=== PATIENT | female | born 1950 | race Hispanic/Latino ===

== ENCOUNTER 2023-02-04 13:36 | Emergency (ER) | payer MEDICARE ==
[~2023-02-04] VITALS: Ht 162.6 cm; Wt 88.6 kg
[2023-02-04] VITALS (14 sets, daily range): BP systolic 172–208; BP diastolic 62–97
[2023-02-04 14:40] LABS: BASO% 0.2 % (0-3); EOS% 0.3 % (0-8); HEMOGLOBIN 11.7 g/dl (12.0-16.0); IMMATURE GRANULOCYTES 0.2 % (0.0-5.0); LYMPH% 16.7 % (15-41); MEAN CELL VOLUME 85.4 fL CALC (80.0-100.0); MEAN CORPUSCULAR HGB 28.5 pG CALC (26.0-32.0); MEAN CORPUSCULAR HGB CONC 33.4 g/dL CAL (32.0-36.0); NEUT# 9.96 thou/uL (2.00-7.15); NEUT% 76.6 % (42-76); RED BLOOD COUNT 4.1 mill/uL (4.20-5.60); RED CELL DISTRI WIDTH 12.9 % (11.5-15.5)
[2023-02-04 14:44] LABS: ALBUMIN 3.8 g/dL (3.2-5.0); CREATININE 1.4 mg/dL (0.5-1.0); POTASSIUM 3.8 mmol/l (3.5-5.1); TOTAL PROTEIN 6.8 g/dL (6.3-8.2)
[2023-02-04 14:45] LABS: BILIRUBIN, TOTAL 0.7 mg/dL (0.02-1.3)
[2023-02-04 15:21] LABS: URINE BILIRUBIN - DIPSTICK NEGATIVE (NEGATIVE); URINE BLOOD DIPSTICK SMALL (NEGATIVE); URINE COLOR YELLOW; URINE GLUCOSE - DIPSTICK >=1000 mg/dL (NEGATIVE); URINE KETONE NEGATIVE (NEGATIVE); URINE LEUK ESTERASE NEGATIVE (NEGATIVE); URINE PROTEIN - DIPSTICK 100 mg/dL (NEG-TRACE); URINE SPECIFIC GRAVITY 1.015
[2023-02-04 15:24] LABS: URINE NITRITE - DIPSTICK NEGATIVE (Negative)
[2023-02-04 15:35] LABS: URINE SQUAMOUS EPITHELIAL CELL FEW EPI/hpf (0-FEW); URINE WBC 20-50 WBC/hpf (0-5)
[2023-02-04] MEDS ORDERED: CEFDINIR300 MG PO (16:43)
== END 2023-02-04 18:42 | disposition home or self-care (01) ==
LOC: ED 13:36
PROVIDERS: Family Medicine
DX: N39.0 Urinary tract infection, site not specified (principal); B96.89 Other specified bacterial agents as the cause of diseases classified elsewhere; I10 Essential (primary) hypertension; E11.9 Type 2 diabetes mellitus without complications
CPT/HCPCS: Q9967

== ENCOUNTER 2023-02-14 13:50 | Emergency (ER) | payer MEDICARE ==
[2023-02-14] VITALS (14 sets, daily range): BP systolic 164–227; BP diastolic 65–94
[~2023-02-14] VITALS: Ht 162.6 cm; Wt 90.0 kg
[~2023-02-14 13:50] MED LIST: CEFDINIR300 MG PO
[2023-02-14] MEDS ORDERED: JARDIANCE25 MG (14:15)
[2023-02-14] MEDS ORDERED: ATORVASTATIN CA20 MG PO (14:15)
[2023-02-14] MEDS ORDERED: JANUVIA100 MG PO (14:16)
[2023-02-14] MEDS ORDERED: LOSARTAN POTAS100 MG PO (14:17)
[2023-02-14] MEDS ORDERED: ASPIRIN81 MG PO (14:17)
[2023-02-14] MEDS ORDERED: METFORMIN HCL1000 MG PO (14:18)
[2023-02-14 14:30] LABS: URINE BILIRUBIN - DIPSTICK NEGATIVE (NEGATIVE); URINE BLOOD DIPSTICK TRACE-INTACT (NEGATIVE); URINE COLOR YELLOW; URINE GLUCOSE - DIPSTICK >=1000 mg/dL (NEGATIVE); URINE KETONE NEGATIVE (NEGATIVE); URINE LEUK ESTERASE NEGATIVE (NEGATIVE); URINE PH 5.5 (4.5-8.0); URINE PROTEIN - DIPSTICK 100 mg/dL (NEG-TRACE); URINE UROBILINOGEN - DIPSTICK 0.2 E.U./dL (0.2)
[2023-02-14 14:31] LABS: URINE NITRITE - DIPSTICK NEGATIVE (Negative)
[2023-02-14 14:31] LABS: BASO% 0.6 % (0-3); HEMATOCRIT 36.7 % (37.0-47.0); HEMOGLOBIN 11.9 g/dl (12.0-16.0); IMMATURE GRANULOCYTES 0.6 % (0.0-5.0); LYMPH% 33.5 % (15-41); MEAN CELL VOLUME 86.4 fL CALC (80.0-100.0); MEAN CORPUSCULAR HGB CONC 32.4 g/dL CAL (32.0-36.0); MONO% 3.9 % (2-13); NEUT# 4.97 thou/uL (2.00-7.15); NEUT% 59.4 % (42-76); RED BLOOD COUNT 4.25 mill/uL (4.20-5.60); RED CELL DISTRI WIDTH 13.2 % (11.5-15.5)
[2023-02-14 14:32] LABS: URINE EPITHELIAL CELLS FEW EPI/hpf (0-FEW); URINE MUCUS MODERATE hpf (NONE-FEW); URINE RBC 0-2 RBC/hpf (0-5)
[2023-02-14 14:44] LABS: ALBUMIN 4.5 g/dL (3.2-5.0); BILIRUBIN, TOTAL 0.8 mg/dL (0.02-1.3); CREATININE 1.7 mg/dL (0.5-1.0); POTASSIUM 4.7 mmol/l (3.5-5.1); TOTAL PROTEIN 8.6 g/dL (6.3-8.2)
[2023-02-14 15:41] LABS: MAGNESIUM 1.8 mg/dL (1.6-2.3)
== END 2023-02-14 17:31 | disposition home or self-care (01) ==
LOC: ED 13:50
PROVIDERS: Nurse Practitioner
DX: R53.1 Weakness (principal); I12.9 Hypertensive chronic kidney disease with stage 1 through stage 4 chronic kidney disease, or unspecified chronic kidney disease; E11.22 Type 2 diabetes mellitus with diabetic chronic kidney disease; N18.9 Chronic kidney disease, unspecified; E78.00 Pure hypercholesterolemia, unspecified; Z79.84 Long term (current) use of oral hypoglycemic drugs
CPT/HCPCS: S0164

== ENCOUNTER 2023-11-30 09:38 | Observation (INO) | payer MEDICARE ==
[~2023-11-30] VITALS: Ht 162.6 cm; Wt 80.8 kg
[2023-11-30] VITALS (26 sets, daily range): BP systolic 135–225; BP diastolic 40–70
[~2023-11-30 09:38] MED LIST changes: +ASPIRIN81 MG PO; +ATORVASTATIN CA20 MG PO; +JANUVIA100 MG PO; +JARDIANCE25 MG; +LOSARTAN POTAS100 MG PO; +METFORMIN HCL1000 MG PO
[2023-11-30 11:32] LABS: URINE BILIRUBIN - DIPSTICK Negative (NEGATIVE); URINE BLOOD DIPSTICK Small (NEGATIVE); URINE COLOR Yellow; URINE GLUCOSE - DIPSTICK Negative (NEGATIVE); URINE KETONE Negative (NEGATIVE); URINE LEUK ESTERASE Moderate (NEGATIVE); URINE NITRITE - DIPSTICK Negative (Negative); URINE PH 5.5 (4.5-8.0); URINE PROTEIN - DIPSTICK 100 mg/dL (NEG-TRACE); URINE SPECIFIC GRAVITY 1.015; URINE UROBILINOGEN - DIPSTICK 0.2 E.U./dL (0.2)
[2023-11-30 11:34] LABS: URINE BACTERIA MANY hpf; URINE SQUAMOUS EPITHELIAL CELL FEW EPI/hpf (0-FEW); URINE WBC 20-50 WBC/hpf (0-5)
[2023-11-30 11:45] LABS: BASO% 0.3 % (0-3); IMMATURE GRANULOCYTES 0.2 % (0.0-5.0); LYMPH% 6.9 % (15-41); MEAN CELL VOLUME 84.7 fL CALC (80.0-100.0); MEAN CORPUSCULAR HGB 29.1 pG CALC (26.0-32.0); MEAN CORPUSCULAR HGB CONC 34.3 g/dL CAL (32.0-36.0); MONO% 5.4 % (2-13); NEUT# 15.73 thou/uL (2.00-7.15); NEUT% 87.2 % (42-76); RED BLOOD COUNT 4.13 mill/uL (4.20-5.60); RED CELL DISTRI WIDTH 12.7 % (11.5-15.5)
[2023-11-30 12:06] LABS: ALBUMIN 4.3 g/dL (3.2-5.0); CREATININE 2.1 mg/dL (0.5-1.0); TOTAL PROTEIN 7.6 g/dL (6.3-8.2)
[2023-11-30 12:20] LABS: POTASSIUM 3.5 mmol/l (3.5-5.1)
[2023-11-30] MEDS ORDERED: ATORVASTATIN CA20 MG PO (14:44)
[2023-11-30] MEDS ORDERED: APRESOLINE50 MG PO (14:46)
[2023-11-30] MEDS ORDERED: MOUNJARO7.5 MG SC (15:06)
[2023-11-30] MEDS ORDERED: TRESIBA FL100 UNIT/M (15:07)
[2023-11-30] MEDS ORDERED: NOVOLOG FL100 UNIT/M IM (15:09)
[2023-11-30] MEDS ORDERED: CLONIDINE0.2 MG PO (17:09)
[2023-11-30] MEDS ORDERED: JARDIANCE25 MG PO (17:11)
[2023-11-30] MEDS ORDERED: JANUVIA100 MG PO (17:12)
[2023-12-01 03:39] VITALS: BP 131/34
[2023-12-01 04:57] LABS: BASO% 0.2 % (0-3); HEMOGLOBIN 10.4 g/dl (12.0-16.0); LYMPH% 11.7 % (15-41); MEAN CELL VOLUME 85.4 fL CALC (80.0-100.0); MEAN CORPUSCULAR HGB 28.7 pG CALC (26.0-32.0); MEAN CORPUSCULAR HGB CONC 33.5 g/dL CAL (32.0-36.0); MONO% 6.2 % (2-13); NEUT# 13.53 thou/uL (2.00-7.15); NEUT% 80.9 % (42-76); RED BLOOD COUNT 3.63 mill/uL (4.20-5.60); RED CELL DISTRI WIDTH 12.9 % (11.5-15.5)
[2023-12-01 05:16] LABS: BILIRUBIN, TOTAL 0.6 mg/dL (0.02-1.3); CHOLESTEROL HDL RATIO 3.2 (<4.4 (CALC)); CREATININE 1.9 mg/dL (0.5-1.0); MAGNESIUM 1.4 mg/dL (1.6-2.3); POTASSIUM 3.5 mmol/l (3.5-5.1)
[2023-12-01 05:18] LABS: ALBUMIN 3.1 g/dL (3.2-5.0); TOTAL PROTEIN 5.8 g/dL (6.3-8.2)
[2023-12-01 06:21] VITALS: BP 163/44
[2023-12-01 14:42] VITALS: BP 119/47
[2023-12-01 15:35] VITALS: BP 119/47
[2023-12-01 19:52] VITALS: BP 151/46
[2023-12-02 00:37] VITALS: BP 107/42
[2023-12-02 04:10] VITALS: BP 112/36
[2023-12-02 05:33] LABS: BASO% 0.6 % (0-3); EOS% 0.9 % (0-8); HEMATOCRIT 29.5 % (37.0-47.0); HEMOGLOBIN 9.7 g/dl (12.0-16.0); IMMATURE GRANULOCYTES 0.1 % (0.0-5.0); LYMPH% 28.3 % (15-41); MEAN CELL VOLUME 87.5 fL CALC (80.0-100.0); MEAN CORPUSCULAR HGB 28.8 pG CALC (26.0-32.0); MEAN CORPUSCULAR HGB CONC 32.9 g/dL CAL (32.0-36.0); MONO% 5.8 % (2-13); NEUT# 8.59 thou/uL (2.00-7.15); NEUT% 64.3 % (42-76); RED BLOOD COUNT 3.37 mill/uL (4.20-5.60); RED CELL DISTRI WIDTH 12.9 % (11.5-15.5)
[2023-12-02 05:52] LABS: BILIRUBIN, TOTAL 0.4 mg/dL (0.02-1.3); CREATININE 1.8 mg/dL (0.5-1.0); POTASSIUM 3.3 mmol/l (3.5-5.1); TOTAL PROTEIN 5.8 g/dL (6.3-8.2)
[2023-12-02 07:20] VITALS: BP 145/50
[2023-12-02 11:18] VITALS: BP 150/54
[2023-12-02] MEDS ORDERED: OMNICEF300 MG PO ×2 (12:46→14:14)
== END 2023-12-02 14:38 | disposition home or self-care (01) ==
LOC: ED 09:38 → ED-I 11:41 → ED 14:50 → MS2 14:51
PROVIDERS: Family Medicine; Nurse Practitioner Family; ADMIT Student in an Organized Health Care Education/Training Program; ATTEND Student in an Organized Health Care Education/Training Program
DX: N10 Acute pyelonephritis (principal); B96.20 Unspecified Escherichia coli [E. coli] as the cause of diseases classified elsewhere; N17.9 Acute kidney failure, unspecified; I24.89 Other forms of acute ischemic heart disease; I12.9 Hypertensive chronic kidney disease with stage 1 through stage 4 chronic kidney disease, or unspecified chronic kidney disease; E11.22 Type 2 diabetes mellitus with diabetic chronic kidney disease; N18.32 Chronic kidney disease, stage 3b; E78.00 Pure hypercholesterolemia, unspecified; Z79.84 Long term (current) use of oral hypoglycemic drugs
CPT/HCPCS: J0692; J3475